=== PATIENT | female | born 1995 | race Caucasian/White ===

== ENCOUNTER 2016-11-26 11:11 | Emergency (ER) | payer OTHER | END 2016-11-26 12:20 | disposition home or self-care (01) | LOC: FER 11:11 | DX: O99.512 Diseases of the respiratory system complicating pregnancy, second trimester (principal); J06.9 Acute upper respiratory infection, unspecified; Z3A.15 15 weeks gestation of pregnancy | CPT/HCPCS: 87450; 87804; 87899; 99283 ==

== ENCOUNTER 2016-12-15 15:39 | Emergency (ER) | payer OTHER | END 2016-12-15 17:53 | disposition home or self-care (01) | LOC: FER 15:39 | DX: O99.89 Other specified diseases and conditions complicating pregnancy, childbirth and the puerperium (principal); R10.84 Generalized abdominal pain; Z87.891 Personal history of nicotine dependence; V43.62XA Car passenger injured in collision with other type car in traffic accident, initial encounter; Y92.410 Unspecified street and highway as the place of occurrence of the external cause; Z3A.17 17 weeks gestation of pregnancy | CPT/HCPCS: 76805 ==

== ENCOUNTER 2017-03-24 10:54 | Emergency (ER) | payer OTHER ==
[2017-03-24 12:53] LABS: BILIRUBIN 1+ mg/dL (NEGATIVE); BLOOD NEGATIVE Ery/uL (NEGATIVE); CLARITY HAZY (CLEAR); COLOR YELLOW (YELLOW); GLUCOSE (U) NORMAL (NORMAL); KETONE (U) 1+ (SMALL) mg/dL (NEGATIVE); LEUKOCYTES 2+ Leu/uL (NEGATIVE); NITRITE NEGATIVE (NEGATIVE); PROTEIN TRACE (LOW) mg/dL (NEGATIVE); SPECIFIC GRAVITY 1.025 (1.001-1.030); pH 6.5 (5.0-9.0)
[2017-03-24 12:54] LABS: BACTERIA TRACE; MUCOUS TRACE; SQUAMOUS EPITHELIAL CELLS >50
== END 2017-03-24 15:05 | disposition home or self-care (01) ==
LOC: FER 10:54
PROVIDERS: Nurse Practitioner
DX: B37.3 Candidiasis of vulva and vagina (principal); S70.322A Blister (nonthermal), left thigh, initial encounter; J02.9 Acute pharyngitis, unspecified; Z91.012 Allergy to eggs
CPT/HCPCS: 81001; 87210; 99284